=== PATIENT | female | born 1975 ===

== ENCOUNTER 2018-05-08 11:55 | Emergency (ER) | payer MEDICAID, OTHER, SELFPAY ==
[~2018-05-08] VITALS: Ht 152.4 cm; Wt 75.0 kg
[2018-05-08 12:07] VITALS: BP 137/91
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
--- NOTE | 2018-05-08 13:36 | NUR ---
Patient/Caregiver given discharge instructions and they have confirmed that they understand the instructions. Patient ambulatory with steady gait.
== END 2018-05-08 13:40 | disposition home or self-care (01) ==
LOC: ED 13:26
DX: S02.2XXA Fracture of nasal bones, initial encounter for closed fracture (principal); S00.211A Abrasion of right eyelid and periocular area, initial encounter; K21.9 Gastro-esophageal reflux disease without esophagitis; F41.1 Generalized anxiety disorder; Y08.89XA Assault by other specified means, initial encounter; Y93.89 Activity, other specified; Y92.89 Other specified places as the place of occurrence of the external cause; Y99.8 Other external cause status
CPT/HCPCS: 70486; 99284

== ENCOUNTER 2018-10-22 17:39 | Emergency (ER) | payer MEDICAID ==
[~2018-10-22] VITALS: Ht 162.6 cm; Wt 72.0 kg
[2018-10-22 17:52] VITALS: BP 101/57
--- NOTE | 2018-10-22 17:57 | NUR ---
PT IN BED AT THIS TIME. NIBP AND O2 MONITORING IN PLACE. BED LOW, LOCKED AND CALL LIGHT IN REACH. WARM BLANKET PROVIDED. PT ON 2 LPM O2 VIA NC.
--- NOTE | 2018-10-22 19:39 | NUR ---
PT IN ROOM AT THIS TIME. O2 MONITORING IN PLACE. RESPS EVEN AND UNLABORED. PT AROUSABLE TO TOUCH BUT WILL FALL ASLEEP. NO ATTEMPTS TO GET OUT OF BED MADE. WILL CONTINUE TO MONITOR
== END 2018-10-22 21:06 | disposition home or self-care (01) ==
LOC: MERGE 20:59 → ED 20:59
DX: F10.220 Alcohol dependence with intoxication, uncomplicated (principal)
CPT/HCPCS: 99283

== ENCOUNTER 2018-10-27 14:51 | Emergency (ER) | payer MEDICAID ==
[~2018-10-27] VITALS: Ht 165.1 cm; Wt 66.5 kg
[2018-10-27 15:01] VITALS: BP 132/82
--- NOTE | 2018-10-27 15:18 | NUR ---
URINE COLLECTED/SENT TO LAB.
[2018-10-27] MEDS ORDERED: PHENAZOPYRIDINE 200 MG TABLET ONE (15:26)
[2018-10-27] MEDS ORDERED: PHENAZOPYRIDINE 200 MG TABLET PO ONE (15:30)
[2018-10-27 15:32] LABS: MICROSCOPIC NOT IND
[2018-10-27 15:44] LABS: CULTURE INDICATED? NO
--- NOTE | 2018-10-27 16:01 | NUR ---
PT ASKING TO LEAVE, HAS APPOINTMENT ELSEWHERE. PT DISCHARGED.
[2018-10-27 17:12] LABS: HCG UR SG 1.004 (1.003-1.030)
== END 2018-10-27 16:02 | disposition home or self-care (01) ==
LOC: ED 15:55
DX: R30.0 Dysuria (principal); K21.9 Gastro-esophageal reflux disease without esophagitis; Z76.0 Encounter for issue of repeat prescription; F17.200 Nicotine dependence, unspecified, uncomplicated
CPT/HCPCS: 81003; 81025; 99283

== ENCOUNTER 2018-11-04 19:38 | Emergency (ER) | payer MEDICAID ==
[~2018-11-04] VITALS: Ht 167.6 cm; Wt 65.0 kg
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
[2018-11-04 20:26] LABS: ALBUMIN 3.5 g/dL (3.4-5.0); ANION GAP 12 mmol/L (5-15); CHLORIDE 108 mmol/L (98-107)
[2018-11-04 20:27] LABS: MEAN CORPUSCULAR HEMOGLOBIN 23.1 pg (27.0-34.8); MEAN CORPUSCULAR HGB CONC 31.1 g/dL (32.4-35.8); MEAN CORPUSCULAR VOLUME 74.3 fL (80-100); MEAN PLATELET VOLUME 6.7 fL (7.4-10.4); PLATELET COUNT 316 x10^3/uL (130-400); RED BLOOD COUNT 3.83 x10^6/uL (3.82-5.3); RED CELL DISTRIBUTION WIDTH 23.3 % (9.6-15.2)
[2018-11-04 20:29] LABS: MD YES
[2018-11-04 20:32] LABS: ALANINE AMINOTRANSFERASE 128 U/L (12-78); ALKALINE PHOSPHATASE 113 U/L (45-117); BILIRUBIN,TOTAL 0.5 mg/dL (0.2-1.0); CREATININE 0.57 mg/dL (0.55-1.02)
--- NOTE | 2018-11-04 20:33 | NUR ---
AWAKEN VERBAL, NO VERBAL RESPONSE AT THIS TIME
--- NOTE | 2018-11-04 20:51 | NUR ---
RESTING QUIETLY, REMAINS NON VERBAL EYES OPEN ARRIVAL
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
[2018-11-04 21:08] LABS: BAND#(MANUAL) 0.04 x10^3/uL; BANDS%(MANUAL) 1 % (0-7); BASOS#(MANUAL) 0.09 x10^3/uL (0-0.1); BASOS% (MANUAL) 2 % (0-1); EOS#(MANUAL) 0.18 x10^3/uL (0.0-0.4); EOS% (MANUAL) 4 % (1-7); LYMPHS% (MANUAL) 34 % (22-44); MONOS#(MANUAL) 0.13 x10^3/uL (0.3-2.7); MONOS% (MANUAL) 3 % (2-9); SEG#(MANUAL) 2.46 x10^3/uL (1.8-6.8); SEGS% (MANUAL) 56 % (42-75)
[2018-11-04 21:10] LABS: HYPOCHROMIA 1+; MICROCYTOSIS 1+; OVALOCYTES 1+
[2018-11-04 21:11] LABS: <PLATELET ESTIMATE> ADEQUATE; <PLT MORPHOLOGY> NORMAL PLT MORPH; ANISOCYTOSIS 1+; TARGET CELLS 2+
--- NOTE | 2018-11-04 21:30 | NUR ---
PT RESTING QUIETLY, AWAIT SOBRIETY FOR FURTHER EVAL.
--- NOTE | 2018-11-04 22:19 | NUR ---
SLEEPING QUIETLY, RESP RATE EVEN AND REGULAR
--- NOTE | 2018-11-04 22:49 | NUR ---
NO CHANGES, RESP RATE EVEN AND REGULAR, NAD
[2018-11-04 22:51] VITALS: BP 92/65
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
[2018-11-04] MEDS ORDERED: THIAMINE 100MG TABLET PO ONE (23:30)
== END 2018-11-04 23:23 | disposition home or self-care (01) ==
LOC: ED 20:29
DX: F10.220 Alcohol dependence with intoxication, uncomplicated (principal)
CPT/HCPCS: 36415; 80053; 80307; 84703; 85025; 99283

== ENCOUNTER 2018-12-21 14:42 | Emergency (ER) | payer MEDICAID | END 2018-12-21 16:02 | disposition left against medical advice (07) | LOC: ED 15:56 | DX: R20.2 Paresthesia of skin (principal); R21 Rash and other nonspecific skin eruption; Z53.21 Procedure and treatment not carried out due to patient leaving prior to being seen by health care provider ==

== ENCOUNTER 2019-05-06 11:20 | Emergency (ER) | payer MEDICAID ==
[~2019-05-06] VITALS: Ht 172.7 cm; Wt 72.0 kg
[~2019-05-06 11:20] MED LIST: HYDR10TA4 PO
[2019-05-06 11:26] VITALS: BP 107/73
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
== END 2019-05-06 12:24 | disposition home or self-care (01) ==
LOC: ED 12:18
DX: F10.120 Alcohol abuse with intoxication, uncomplicated (principal); K21.9 Gastro-esophageal reflux disease without esophagitis; Z72.9 Problem related to lifestyle, unspecified; Y90.9 Presence of alcohol in blood, level not specified
CPT/HCPCS: 99283

== ENCOUNTER 2019-05-07 00:56 | Emergency (ER) | payer MEDICAID ==
[~2019-05-07] VITALS: Ht 165.1 cm; Wt 63.0 kg
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
--- NOTE | 2019-05-07 02:30 | NUR ---
PT RESTRAINTS REMOVED FROM LOWER EXT PT CALM AND RESTING ON GURNEY
--- NOTE | 2019-05-07 03:35 | NUR ---
ALL RESTRAINTS REMOVED, PT RESTING ON GURNEY AROUSABLE TO VERBAL STIMULI
--- NOTE | 2019-05-07 04:39 | NUR ---
PT AROUSABLE TO VERBAL STIMULI, LAUGHS AND STS "I BEEN SLEEP FOR LIKE ONE HOUR HAAAA." [facility]
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
--- NOTE | 2019-05-07 07:01 | NUR ---
Received bedside report from RACHELE Bonner. Pt resting with eyes closed on left lateral side on [facility]. Pt has unlabored respirations with even chest rise and fall. Pt is connected to NIBP cuff and continous pulse ox monitor. Bedrails up x [address] NADN. Call light within reach. No needs expressed at this time.
--- NOTE | 2019-05-07 08:40 | NUR ---
Pt resting supine on gurney with eyes closed. Pt has unlabored respirations with even chest rise and fall. NADN. No needs expressed. Bedrails up x 2 and call light within reach. Seizure pads remain in place.
--- NOTE | 2019-05-07 10:52 | NUR ---
PatienT given discharge instructions and they have confirmed that they understand the instructions. Patient ambulatory with steady gait. Pt left with d/c paperwork, bus pass, and all personal belongings.
[2019-05-07 10:54] VITALS: BP 101/58
== END 2019-05-07 10:56 | disposition home or self-care (01) ==
LOC: ED 01:26
DX: F10.120 Alcohol abuse with intoxication, uncomplicated (principal); G31.2 Degeneration of nervous system due to alcohol; F17.200 Nicotine dependence, unspecified, uncomplicated; Y90.0 Blood alcohol level of less than 20 mg/100 ml
CPT/HCPCS: 36415; 80307; 99283

== ENCOUNTER 2019-07-20 14:05 | Emergency (ER) | payer MEDICAID ==
[~2019-07-20] VITALS: Ht 165.1 cm; Wt 68.3 kg
[~2019-07-20 14:05] MED LIST changes: +HYDR-2995 PO; -HYDR10TA4 PO
--- NOTE | 2019-07-20 15:22 | NUR ---
PATIENT ARRIVES WITH BLE PAIN AND NUMBNESS. THIS BEGAN TWO DAYS AGO BUT HAPPENED TO HER ALL LAST SUMMER. PATIENT IS HOMELESS AND LIVES IN A TENT BY [address]
--- NOTE | 2019-07-20 15:28 | NUR ---
PATIENT STATES SHE WAS DIAGNOSED WITH PRE DIABETES. SHE ALSO HAS PINK AND REDDNESS TO RIGHT TOE MIDLINE. SHE CLAIMS TO DRINK ALCOHOL ALL DAY.
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
[2019-07-20] MEDS ORDERED: POTASSIUM CHLORIDE 20 MEQ, MAGNESIUM SULFATE 1 GM, FOLIC ACID 1 MG, THIAMINE 200 MG, MV... IV SCH (16:00)
[2019-07-20 16:14] LABS: ALANINE AMINOTRANSFERASE 111 U/L (12-78); ALBUMIN 3.2 g/dL (3.4-5.0); ANION GAP 8 mmol/L (5-15); CALCIUM 8.5 mg/dL (8.5-10.1); CHLORIDE 103 mmol/L (98-107); CREATININE 0.57 mg/dL (0.55-1.02)
[2019-07-20 16:16] LABS: ALKALINE PHOSPHATASE 134 U/L (45-117); BILIRUBIN,TOTAL 0.5 mg/dL (0.2-1.0); TOTAL PROTEIN 8.3 g/dL (6.4-8.2)
[2019-07-20 16:21] LABS: MD YES; MEAN CORPUSCULAR HEMOGLOBIN 20.2 pg (27.0-34.8); MEAN CORPUSCULAR HGB CONC 30.8 g/dL (32.4-35.8); MEAN CORPUSCULAR VOLUME 65.7 fL (80-100); PLATELET COUNT 243 x10^3/uL (130-400); RED BLOOD COUNT 4.34 x10^6/uL (3.82-5.3); RED CELL DISTRIBUTION WIDTH 20.7 % (9.6-15.2)
[2019-07-20 16:37] LABS: BASOS#(MANUAL) 0.08 x10^3/uL (0-0.1); BASOS% (MANUAL) 2 % (0-1); EOS#(MANUAL) 0.08 x10^3/uL (0.0-0.4); EOS% (MANUAL) 2 % (1-7); LYMPH#(MANUAL) 0.57 x10^3/uL (1-3.4); LYMPHS% (MANUAL) 15 % (22-44); MONOS#(MANUAL) 0.15 x10^3/uL (0.3-2.7); MONOS% (MANUAL) 4 % (2-9); SEG#(MANUAL) 2.93 x10^3/uL (1.8-6.8); SEGS% (MANUAL) 77 % (42-75)
[2019-07-20 16:38] LABS: <PLATELET ESTIMATE> ADEQUATE; <PLT MORPHOLOGY> NORMAL PLT MORPH; ANISOCYTOSIS 1+; HYPOCHROMIA 1+; MICROCYTOSIS 1+; OVALOCYTES 1+; TARGET CELLS 1+
[2019-07-20] MEDS ORDERED: CLINDAMYCIN 300 MG CAPSULE PO ONE (18:00)
[2019-07-20] MEDS ORDERED: CLINDAMYCIN 300 MG CAPSULE ONE (18:03)
[2019-07-20 18:08] VITALS: BP 140/78
--- NOTE | 2019-07-20 18:28 | NUR ---
getting patient taxi voucher to get home and clothes, gave them dinner
== END 2019-07-20 18:45 ==
LOC: ED 18:39
DX: L03.116 Cellulitis of left lower limb (principal); L03.115 Cellulitis of right lower limb; L08.89 Other specified local infections of the skin and subcutaneous tissue; G62.1 Alcoholic polyneuropathy; E11.9 Type 2 diabetes mellitus without complications; R20.0 Anesthesia of skin
CPT/HCPCS: 36415; 80053; 85025; 96365; 96366; 99284; J3411; J3475; J3480; J7042

== ENCOUNTER 2020-10-02 04:43 | Emergency (ER) | payer MEDICAID ==
[~2020-10-02] VITALS: Ht 165.1 cm; Wt 65.0 kg
--- NOTE | 2020-10-02 04:52 | NUR ---
pt went directly into the bathroom after checking in.
[2020-10-02 04:57] VITALS: BP 138/84
[2020-10-02] MEDS ORDERED: PIPERONYL BUTOXIDE TP SCH (06:00)
[2020-10-02] MEDS ORDERED: PYRETHRINS TP SCH (06:00)
== END 2020-10-02 06:14 | disposition home or self-care (01) ==
LOC: ED 06:11
DX: B85.1 Pediculosis due to Pediculus humanus corporis (principal); K21.9 Gastro-esophageal reflux disease without esophagitis; E11.40 Type 2 diabetes mellitus with diabetic neuropathy, unspecified; F17.200 Nicotine dependence, unspecified, uncomplicated
CPT/HCPCS: 99281

== ENCOUNTER 2020-10-19 11:28 | Emergency (ER) | payer MEDICAID ==
[~2020-10-19] VITALS: Ht 165.1 cm; Wt 65.0 kg
[2020-10-19 11:34] VITALS: BP 115/72
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
--- NOTE | 2020-10-19 12:05 | NUR ---
[employer] AT BEDSIDE
[2020-10-19] MEDS ORDERED: ACETAMINOPHEN 500 MG TABLET ONE (12:27)
[2020-10-19] MEDS ORDERED: ACETAMINOPHEN 500 MG TABLET PO ONE (12:30)
--- NOTE | 2020-10-19 12:35 | NUR ---
DISCAHRGE INSTRUCTIONS REVIEWED WITH PT. ALL QUESTIONS ANSWERED AT THIS TIME.
== END 2020-10-19 12:40 | disposition home or self-care (01) ==
LOC: ED 12:34
DX: F10.220 Alcohol dependence with intoxication, uncomplicated (principal); M54.2 Cervicalgia; F17.210 Nicotine dependence, cigarettes, uncomplicated; E11.40 Type 2 diabetes mellitus with diabetic neuropathy, unspecified; K21.9 Gastro-esophageal reflux disease without esophagitis; Y04.2XXA Assault by strike against or bumped into by another person, initial encounter; Y93.89 Activity, other specified; Y92.410 Unspecified street and highway as the place of occurrence of the external cause; Y99.8 Other external cause status
CPT/HCPCS: 99406

== ENCOUNTER 2020-11-23 17:23 | Emergency (ER) | payer MEDICAID ==
[~2020-11-23] VITALS: Ht 165.1 cm; Wt 70.0 kg
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
--- NOTE | 2020-11-23 18:44 | NUR ---
REPORT RECIEVED FROM RACHELE SORIA
--- NOTE | 2020-11-23 19:08 | NUR ---
PT BACK FROM CT, AWAITING RESULTS
[2020-11-23 19:22] VITALS: BP 112/73
== END 2020-11-23 19:45 | disposition home or self-care (01) ==
LOC: ED 18:00
DX: S16.1XXA Strain of muscle, fascia and tendon at neck level, initial encounter (principal); S20.219A Contusion of unspecified front wall of thorax, initial encounter; S09.90XA Unspecified injury of head, initial encounter; F10.220 Alcohol dependence with intoxication, uncomplicated; E11.9 Type 2 diabetes mellitus without complications; K21.9 Gastro-esophageal reflux disease without esophagitis; Y04.8XXA Assault by other bodily force, initial encounter; Y93.89 Activity, other specified; Y92.410 Unspecified street and highway as the place of occurrence of the external cause; Y99.8 Other external cause status; Y90.0 Blood alcohol level of less than 20 mg/100 ml
CPT/HCPCS: 70450; 71045; 72125; 99285

== ENCOUNTER 2020-12-27 12:15 | Emergency (ER) | payer MEDICAID ==
[~2020-12-27] VITALS: Ht 165.1 cm; Wt 63.0 kg
[2020-12-27 12:52] VITALS: BP 115/70
== END 2020-12-27 13:50 | disposition home or self-care (01) ==
LOC: ED 13:44
DX: L04.0 Acute lymphadenitis of face, head and neck (principal); F15.19 Other stimulant abuse with unspecified stimulant-induced disorder; E11.9 Type 2 diabetes mellitus without complications; K21.9 Gastro-esophageal reflux disease without esophagitis
CPT/HCPCS: 99282